=== PATIENT | female | born 1985 | race African-American/Black ===

== ENCOUNTER → 2016-05-02 | Outpatient (CLI) | payer OTHER ==
[~2016-05-02] MED LIST: ALBUTEROL17 GM INH; DARVOCET-N 1001 TAB PO; FLEXERIL PO; IBUPROFEN PO; ULTRAM PO; WALGREENS PHARMACY
--- NOTE | ~2016-05-02 | US98 ---
[facility] A Service of [facility] & [facility] RADIOLOGY TEXT RESULTS PATIENT: GERMÁN WINKLER LOCATION: [facility] : [birth year] UNIT #: [id number] AGE: [address]: KASSIDY WOMACK APRN SEX: F ORDER DR: [id number] [facility] [address] [place], [place] [address] [id number] O MR#: [id number] Acc #: [id number] NAME: GERMÁN WINKLER. : 1985 SEX: F STUDY DATE/TIME: 05/02/2016 9:41 UNIT: [facility] ROOM: STUDY DESCRIPTION: US Pelvic Non-OB Complete Attending Physician: Kassidy Womack Referring Physician: Kassidy Womack Ordering Physician: Emelia Womack M.D. Primary Care Physician: Mendoza Gutiérrez M.D. MEDICAL IMAGING REPORT This report is preliminary unless electronic signature is present EXAM Transabdominal and transvaginal pelvic ultrasound. DATE 05/02/2016 HISTORY 31-year-old female with left lower quadrant abdominal pain for 1 month. No abnormal uterine bleeding. Last menstrual period 04/09/2016. G1, P1, AB 0. COMPARISON None PROCEDURE Transabdominal imaging was performed for generalized visualization of pelvic structures while transvaginal imaging was performed for more detailed evaluation of the adnexa. The uterus measures 9.2 x 5.4 x 6.0 cm. Endometrial bilayer appears thickened up to 18 mm, top limits of normal. No focal endometrial lesion is identified. Junctional zone appears upper limits of normal measuring nearly 12 mm without cystic change. Hypoechoic lesion in the posterior lower uterine segment, thought to represent an intramural fibroid measures 1.8 x 1.0 x 1.2 cm. Small cervical nabothian cyst is incidentally noted. The right ovary measures 1.7 x 1.3 x 4.1 cm. Two hypoechoic foci are seen within the right ovary, one measuring 1.9 x 1.2 x 2.3 cm, another measuring 1.8 x 1.7 x 1.8 cm. These lesions demonstrate no hypervascularity on color Doppler imaging, and are favored to represent hemorrhagic cysts. The right ovary demonstrates normal color flow. Trace STS. [facility] A Service of [facility] & [facility] RADIOLOGY TEXT RESULTS PATIENT: GERMÁN WINKLER LOCATION: [facility] : [birth year] UNIT #: [id number] AGE: [address]: KASSIDY WOMACK APRN SEX: F ORDER DR: fluid is seen adjacent to the right ovary. Left ovary measures 2.5 x 1.9 x 3.3 cm without cystic or solid abnormality and demonstrates normal color flow. Left ovary contains a couple of tiny follicles. IMPRESSION 1. Normal sonographic appearance of the left ovary. 2. Two hypoechoic lesions are demonstrated within the right ovary, favored to represent hemorrhagic cysts, measuring up to 2.3 cm and 1.8 cm, respectively. 3. Both ovaries demonstrate normal color flow. 4. The junctional zone within the uterus is at upper limits of normal thickness, 12 mm, and raises the possibility of adenomyosis. 5. 1.8 cm intramural uterine fibroid in the posterior mid to lower uterine segment. 6. Trace fluid adjacent to the right ovary. Dictated by... Laura Somers M.D. THIS IS AN ELECTRONICALLY VERIFIED REPORT Laura Somers M.D. at 05/03/2016 5:13 PM HARITHA/juan TD: 05/02/2016 12:53 JOB #: [id number] MEDICAL IMAGING REPORT Page 1 of 1 COPY
== END | disposition home or self-care (01) ==
LOC: CWCC 09:18
DX: R10.2 Pelvic and perineal pain (principal); N83.9 Noninflammatory disorder of ovary, fallopian tube and broad ligament, unspecified; D25.1 Intramural leiomyoma of uterus
CPT/HCPCS: 76830; 76856

== ENCOUNTER → 2016-09-05 | Outpatient (CLI) | payer OTHER ==
--- NOTE | ~2016-09-05 | US6 ---
[facility] A Service of [facility] & [facility] RADIOLOGY TEXT RESULTS PATIENT: GERMÁN WINKLER LOCATION: [facility] : 85 UNIT #: [id number] AGE: [address]: RAFFY WOMACK APRN SEX: F ORDER DR: [id number] [facility] [address] [place], [place] [address] [id number] O MR#: [id number] Acc #: [id number] NAME: GERMÁN WINKLER : 1985 SEX: F STUDY DATE/TIME: 09/05/2016 9:48 UNIT: [facility] ROOM: STUDY DESCRIPTION: US Abdominal Limited Attending Physician: Emelia Womack M.D. Referring Physician: Emelia Womack M.D. Ordering Physician: Emelia Womack M.D. Primary Care Physician: Mendoza Gutiérrez M.D. MEDICAL IMAGING REPORT This report is preliminary unless electronic signature is present EXAM Right upper quadrant abdominal ultrasound INDICATION Intermittent right upper quadrant abdominal pain for the past 2 months. PROCEDURE Darby-scale and Doppler imaging right upper quadrant of the abdomen. COMPARISON None. FINDINGS Visualized portions of the pancreas are unremarkable. Liver measures 15.3 cm. No liver mass on submitted images. Right kidney measures 11.9 cm. Common duct measures 3 mm. Unremarkable gallbladder. IMPRESSION Negative right upper quadrant ultrasound. Dictated by... Jadiel Espinal M.D. THIS IS AN ELECTRONICALLY VERIFIED REPORT Jadiel Espinal M.D. at 09/06/2016 3:29 PM ZORAIDA/jony TD: 09/05/2016 10:59 JOB #: [id number] MEDICAL IMAGING REPORT Page 1 of 1 COPY
== END | disposition home or self-care (01) ==
LOC: CGUS 09:23
DX: R10.11 Right upper quadrant pain (principal)
CPT/HCPCS: 76705